=== PATIENT | female | born 1940 | race Caucasian/White ===

== ENCOUNTER 2022-09-09 05:52 | Day surgery (SDC) | payer MEDICARE, OTHER, SELFPAY ==
[2022-08-29 14:29] VITALS: BMI 25.6
--- NOTE | 2022-09-08 09:04 | P.PNAN_ITS ---
Anes - Initial Pre Proc Eval Procedure: Operation Date: 09/09/22 07:00 Proposed Procedures p Amputation Second Digit Left Foot - Elton Merino JR, MD Date/Time: 09/08/22 09:04 Surgeon: Elton Merino JR, MD Pre Op Diagnosis: Hammer Toe 2nd Digit Left Foot Patient Data Age: 82 Gender: F Height: 1.57 m Weight: 63.5 kg Allergies Allergy/AdvReac Type Severity Reaction Status Date / Time No Known Allergies Allergy Verified 09/09/22 06:27 Home Medications Medication Instructions Recorded Confirmed Type levothyroxine 88 mcg tablet 88 mcg PO DAILY #90 tabs 12/01/21 09/09/22 Rx lisinopril 40 mg tablet 40 mg PO DAILY #90 tabs 02/24/22 09/09/22 Rx cyanocobalamin (vitamin B-12) 100 100 mcg PO DAILY 08/29/22 09/09/22 History mcg tablet (Vitamin B-12) glucosamine sulf dipot 1 cap PO DAILY 08/29/22 09/09/22 History chlr,msm,chond 550 mg-C 30 mg-fadumo 1 mg capsule (Glucosamine Chondroitin) magnesium 100 mg capsule 100 mg PO DAILY 08/29/22 09/09/22 History vitamin E 268 mg (400 unit) capsule 268 mg PO DAILY 08/29/22 09/09/22 History Patient hx anesthesia problems: none Family hx anesthesia problems: none Results Review: All pre-operative results and documents have been reviewed as part of the pre- operative evaluation. [facility] Past Medical History Medical History Essential (primary) hypertension Hypothyroidism, unspecified Social History Social History Social History: Smoking status: Never smoker Second hand tobacco smoke exposure: No Alcohol intake: current Drinks per week: 1 Substance use: never Substance use type: does not use Living arrangements: alone Occupation/Education: retired Gender identity (if verbalized by the patient): Female Sexual Orientation (if Verbalized by the Patient): Straight or Heterosexual Spiritual care concerns: No Anes - Eval Final PreProcedure Day of Procedure 09/08/22 09:04 Patient weight: overweight Heart: regular rate and rhythm Lungs: clear to auscultation Airway: Mallampati scale class II Neurological: alert and oriented Last oral intake: >/= 8 hours ASA classification: II Emergent: no Anesthetic plan: proceed Anesthesia type and monitoring: general GIVS and standard monitoring Results Review: All pre-operative results and documents have been reviewed as part of the pre- operative evaluation. Informed Consent: The patient's anesthetic plan and its attendant risks and benefits were discussed with the patient/family/POA. Questions were solicited and answers provided to the satisfaction of the patient/family/POA.
[2022-09-09 06:29] VITALS: BP 173/105; PULSE 58; RESP 18; TEMP 36.1; O2SAT 97
--- NOTE | 2022-09-09 06:44 | WPDHPUPDATE1 ---
History and Physical Update Update Date/Time: 09/09/22 06:44 History and Physical has been reviewed, including an updated exam of the patient. There are NO changes in the patient's condition. Risks, benefits, and alternatives have been discussed and questions answered. Patient agrees to proceed with procedure.
[2022-09-09] MEDS: LACTATED RINGERS 1,000 ML 30 ML IV CONT (06:46)
[2022-09-09] MEDS: BUPIVACAINE/EPINEPHRINE 0.5% 30 ML VIAL INFILTRATE (06:57)
[2022-09-09] MEDS: LIDOCAINE HCL 2% LOCAL INJ 20 ML VIAL INFILTRATE (07:19)
[2022-09-09] MEDS: ceFAZolin SODIUM 1 GM VIAL 2 GM IM (07:22)
[2022-09-09 07:27] VITALS: BP 124/88; PULSE 78; RESP 18; O2SAT 96
--- NOTE | 2022-09-09 07:33 | WPDANESPN ---
Anes - Prog Note Post-Op Date/Time: 09/09/22 07:33 Cardiovascular status: normal Respiratory status: normal Airway patency: baseline Mental status: baseline Post-Op hydration status: normal Vital Signs: Last Vital Signs Temp 36.1 C L 09/09/22 06:29 Pulse 58 L 09/09/22 06:29 Resp 18 09/09/22 06:29 BP 173/105 H 09/09/22 06:29 Pulse Ox 97 09/09/22 06:29 O2 Del Method Room Air 09/09/22 06:29 Pain Score (VAS): 0 Post-procedural complaints: none Patient Feedback: Patient satisfied with anesthetic care. Other Findings: Patient vital signs back to baseline. Patient denies nausea and vomiting. Patient's pain under control. Patient OK for discharge.
[2022-09-09 07:37] VITALS: BP 102/71; PULSE 69; RESP 18; O2SAT 99
--- NOTE | 2022-09-09 07:39 | W.PM.PROC2 ---
Procedure Note - Detailed Date of Procedure 09/09/22 Pre-op Diagnosis Hammer Toe 2nd Digit Left Foot with dislocation of the second metatarsal phalangeal joint Post-op Diagnosis Same Procedure Performed Amputation second digit left foot Surgeon Elton Merino JR, DPSukumar Anesthesia MAC and Local Indications Painful second digit left foot Description of Procedure Under mild sedation, the patient was brought to the operating room, placed on the operating table in the supine position. A pneumatic ankle tourniquet was placed about the patient's ankle. Following general anesthesia, I performed a proximal 2nd metatarsal Olsen Block with 10cc's of 2% Lidocaine plain and 0.5% Marcaine plain. The foot was then scrubbed, prepped, and draped in the usual aseptic manner. An Esmarch bandage was then used to examine the patient's foot and pneumatic ankle tourniquet was then inflated. Surgery began in the following manner. Attention was directed to the dorsal aspect of the 2nd metatarsal phalangeal joint region where a racquet style incision was made about the base of the the 2nd digit. The incision was continued deep down through the subcutaneous tissues using sharp and blunt dissection. All bleeders were cauterized as necessary. A full-length periosteal incision was made overlying the 2nd metatarsal phalangeal joint, disarticulating the 2nd digit. The 2nd digit was removed from the operative site and placed on the back table and discarted. The remaining tissue was healthy and bleeding. The cartilage to the 2nd metatarsal head was normal and healthy. The wound site was then flushed with copious amounts of sterile saline.Next, the periosteum and capsular structures overlying the 2nd metatarsophalangeal joints were reapproximated with 3-0 Vicryl. Next, the skin was reapproximated and coapted utilizing 4-0 Prolene in simple interrupted suture fashion technique. Upon completion of the procedure, the incision was dressed with Adaptic, 4 x 4's, Kerlix, and Coban. The pneumatic ankle tourniquet was then deflated and a prompt hyperemic response noted to all digits of the foot. A surgical shoe was then applied. The patient did very well with the procedure and the anesthesia. The patient was transferred to the recovery room with vital signs stable and vascular status intact to all remaining toes of the affected foot. Following a period of postoperative monitoring, the patient will be discharged home on the following written and oral postoperative instructions: 1. Keep the dressing clean, dry, and intact. Use a cast protector bag with showers. 2. The patient should use a surgical shoe for ambulation postoperatively. 3. The patient should be on bedrest with bathroom privileges and elevate the affected foot when at rest. 4. The patient to contact Dr. Merino for all postop care and if any problems arise. 5. Prescriptions were written for Percocet 5/325 dispensed 40 to be taken 1 p.o. q.4 to 6 hours as needed for severe pain. Estimated Blood Loss 1 Drains No Packing No Pathology None sent Complications No immediate complications Condition Stable Disposition Same day
[2022-09-09 07:47] VITALS: BP 107/91; PULSE 69; RESP 18; O2SAT 99
[2022-09-09 08:02] VITALS: BP 117/72; PULSE 69; RESP 18; O2SAT 100
== END 2022-09-09 08:18 | disposition home or self-care (01) ==
PROVIDERS: PCP Family Medicine; Visit Provider Podiatrist Foot & Ankle Surgery
PROC: (CPT 28820; principal; 2022-09-09 07:00)
DX: M20.42 Other hammer toe(s) (acquired), left foot (principal)
CPT/HCPCS: 28820